=== PATIENT | female | born 1985 | race Caucasian/White ===

== ENCOUNTER 2016-10-10 16:38 | Inpatient (IN) | payer MEDICAID ==
[~2016-10-10] VITALS: Ht 160 cm; Wt 108.5 kg
[2016-10-10] MEDS ORDERED: hePARIN 20,000 UNITS in DEXTROSE 5% 500 ML IV SCH (17:00)
[2016-10-10] MEDS ORDERED: MISSING DOSE XX ONE (20:30)
[2016-10-10 20:33] VITALS: BP_SYST 136; RESP 18; TEMP 99.2
[2016-10-10 20:34] VITALS: Ht 160 cm; Wt 108.5 kg
[2016-10-10] MEDS ORDERED: TEMAZEPAM 15 MG CAP PO PRN (20:50)
[2016-10-10] MEDS ORDERED: SALINE FLUSH 10 ML FLUSH PRN (20:50)
[2016-10-10] MEDS ORDERED: ALU/MAG/SIM 30 ML UDC PO PRN (20:50)
[2016-10-10] MEDS ORDERED: MAG HYDROX 30 ML UDC PO PRN (20:50)
[2016-10-10] MEDS ORDERED: BISACODYL EC 5 MG TAB PO PRN (20:50)
[2016-10-10] MEDS ORDERED: GUAIFEN/DM 10 ML UDC PO PRN (20:50)
[2016-10-10] MEDS ORDERED: BISACODYL 10 MG SUPP RECTAL PRN (20:50)
[2016-10-10] MEDS ORDERED: QUEtiapine 100 MG TAB PO SCH (21:00)
[2016-10-10] MEDS ORDERED: ARTIF TEARS OP SOLN 0.4ML EYE EACH PRN (21:40)
[2016-10-10] MEDS ORDERED: Flu Vaccine Quadrivalent 60 MCG/0.5 ML IM.VACC ONE (21:45)
[2016-10-10] MEDS ORDERED: NICOTINE 21 MG/24 HR TRANSDERM PRN (21:45)
[2016-10-10] MEDS ORDERED: hydrOXYzine 25 MG TAB PO PRN (21:45)
[2016-10-10] MEDS ORDERED: LORAZEPAM 2 MG/ML VIAL IV PRN (21:45)
[2016-10-10] MEDS ORDERED: QUETIAPINE XR 200 MG TAB PO SCH (21:59)
[2016-10-10] MEDS: DICYCLOMINE 10 MG CAP PO PRN (22:17)
[2016-10-10] MEDS: PANTOPRAZOLE 40 MG TAB PO SCH (22:18)
[2016-10-10] MEDS: QUETIAPINE XR 300 MG TAB PO SCH (22:18)
[2016-10-10] MEDS: MIRTAZAPINE 15 MG TAB PO SCH (22:19)
[2016-10-10] MEDS: ACETAMINOPHEN 325 MG TAB PO PRN (22:22)
[2016-10-10] MEDS: ONDANSETRON 4 MG VIAL IV PRN (22:22)
[2016-10-10 23:42] VITALS: BP_SYST 111; RESP 20; TEMP 98.7
[2016-10-11] VITALS (7 sets, daily range): BP systolic 102–125; RESP 16–22; TEMP 97.8–98.6
[2016-10-11] MEDS: SODIUM CHLORIDE 0.9% FLUSH BAG 500 ML IV SCH (06:00)
[2016-10-11] MEDS: SUCRALFATE 1 GM TAB PO SCH ×2 (06:10→16:22)
[2016-10-11] MEDS: SALINE FLUSH 10 ML FLUSH SCH ×2 (07:34→20:11)
[2016-10-11] MEDS ORDERED: QUEtiapine 100 MG TAB PO SCH (09:00)
[2016-10-11] MEDS ORDERED: MIRTAZAPINE 15 MG TAB PO SCH (09:00)
[2016-10-11] MEDS: LORATADINE 10 MG TAB PO SCH (09:06)
[2016-10-11] MEDS: MORPHINE 2 MG/ML SYR IV PRN ×3 (09:07→19:52)
[2016-10-11] MEDS: ONDANSETRON 4 MG VIAL IV PRN ×2 (11:17→17:19)
[2016-10-11] MEDS: Rivaroxaban 15 MG TAB PO SCH ×2 (12:03→16:22)
[2016-10-11] MEDS: DICYCLOMINE 10 MG CAP PO PRN ×2 (12:03→19:50)
[2016-10-11] MEDS: QUETIAPINE XR 300 MG TAB PO SCH (16:22)
[2016-10-11] MEDS: ACETAMINOPHEN 325 MG TAB PO PRN (17:18)
[2016-10-11] MEDS: MIRTAZAPINE 15 MG TAB PO SCH (19:50)
[2016-10-11] MEDS: PANTOPRAZOLE 40 MG TAB PO SCH (19:50)
[2016-10-12 04:32] VITALS: BP_SYST 101; RESP 18; TEMP 98
[2016-10-12] MEDS: SODIUM CHLORIDE 0.9% FLUSH BAG 500 ML IV SCH (05:40)
[2016-10-12 07:23] VITALS: BP_SYST 107; RESP 20; TEMP 98.2
[2016-10-12] MEDS: LORATADINE 10 MG TAB PO SCH (08:46)
[2016-10-12] MEDS: SALINE FLUSH 10 ML FLUSH SCH (08:46)
[2016-10-12] MEDS: SUCRALFATE 1 GM TAB PO SCH ×2 (08:46→16:00)
[2016-10-12] MEDS: Rivaroxaban 15 MG TAB PO SCH (08:46)
[2016-10-12] MEDS: MORPHINE 2 MG/ML SYR IV PRN ×2 (08:52→13:35)
[2016-10-12] MEDS: DICYCLOMINE 10 MG CAP PO PRN (10:38)
[2016-10-12 11:00] VITALS: BP_SYST 120; RESP 19; TEMP 98.4
[2016-10-12 14:42] VITALS: BP_SYST 112; RESP 19; TEMP 98.9
[2016-10-12 15:27] VITALS: BP_SYST 112; RESP 19; TEMP 98.9
[2016-10-12] MEDS ORDERED: MISSING DOSE XX ONE (15:40)
[2016-10-12 16:14] VITALS: BP_SYST 112; RESP 19; TEMP 98.9
== END 2016-10-12 17:18 | disposition home or self-care (01) | DRG 176 ==
LOC: ENRESERVTM → ENRESERVDT → PCU2 20:10 → ENPENDDIS 20:10 → 3NT 10-11 16:39
PROVIDERS: ADMIT Internal Medicine; ATTEND Family Medicine
CPT/HCPCS: 93005; 94799; 99223; 99239; 99255